=== PATIENT | female | born 1940 | race Caucasian/White ===

== ENCOUNTER 2020-10-30 18:26 | Emergency (ER) | payer OTHER ==
[~2020-10-30] VITALS: Ht 157.5 cm; Wt 52.2 kg
--- NOTE | 2020-10-30 18:28 | NUR ---
Placed in room 05 . 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 To gown for exam. Side rails up.
[2020-10-30 18:38] VITALS: BP_SYST 137
--- NOTE | 2020-10-30 19:15 | NUR ---
Received endorsement from previous shift, awake, alert, demented, breathing spontaneously at room air, not in distress noted. skin warm to touch and normal in color. came in ER due to fall with left hip pain. Safety measures in place and continue monitor
[2020-10-30] MEDS ORDERED: MORPHINE 2 MG/ML INJ. SYRINGE IVP ONE (19:30)
--- NOTE | 2020-10-30 20:10 | NUR ---
IV cannula g20 inserted at right forearm, asymptomatic and patent
[2020-10-30] MEDS ORDERED: MORPHINE 2 MG/ML INJ. SYRINGE ONE (20:13)
[2020-10-30 20:15] LABS: BASOPHILS # (AUTO) 0.1 K/uL (0.0-0.2); BASOPHILS % (AUTO) 0.6 % (0.0-2.0); EOSINOPHILS # (AUTO) 0.2 K/uL (0.0-0.4); EOSINOPHILS % (AUTO) 1.7 % (0.0-4.0); HEMATOCRIT 38.3 % (36-48); HEMOGLOBIN 12.5 g/dL (12.0-16.0); LYMPHOCYTES # (AUTO) 1.2 K/uL (1.0-5.5); LYMPHOCYTES % (AUTO) 8.6 % (20.5-51.5); MEAN CORPUSCULAR HEMOGLOBIN 29 pg (27-31); MEAN CORPUSCULAR HGB CONC 33 % (32-36); MEAN CORPUSCULAR VOLUME 89 fL (79.0-98.0); MONOCYTES % (AUTO) 7.2 % (1.7-9.3); NEUTROPHILS % (AUTO) 81.9 % (40.0-70.0); PLATELET COUNT (AUTO) 220 K/uL (130-430); RED BLOOD CELL COUNT(AUTO) 4.31 MIL/uL (4.2-6.2); RED CELL DISTRIBUTION WIDTH 14.2 % (9.0-15.0); WHITE BLOOD COUNT (AUTO) 13.5 K/uL (4.8-10.8)
--- NOTE | 2020-10-30 20:19 | NUR ---
Complained of left hip pain 5/10, facial grimaced noted. morphine 2mg IV once as ordered given
[2020-10-30 20:31] LABS: ANION GAP 6 (5-15); CALCIUM 10.9 mg/dL (8.4-11.0); CHLORIDE 106 mmol/L (98-107); GLUCOSE 85 mg/dL (70-99); POTASSIUM 3.8 mmol/L (3.5-5.1); SODIUM SERUM 139 mmol/L (136-145); UREA NITROGEN, BLOOD 26 mg/dL (8-21)
[2020-10-30 20:36] LABS: ALANINE AMINOTRANSFERASE 38 U/L (12-78); ASPARTATE AMINOTRANSFERASE 22 U/L (10-37); TOTAL BILIRUBIN 0.2 mg/dL (0.0-1.0)
[2020-10-30 20:47] LABS: PROTHROMBIN TIME 9.9 SECS (9.5-12.5)
--- NOTE | 2020-10-30 21:00 | NUR ---
In and out straight catheter done, 50ml clear yellow urine noted, sample sent to lab
[2020-10-30 21:22] LABS: BILIRUBIN,URINE NEGATIVE (NEGATIVE); BLOOD, URINE NEGATIVE (NEGATIVE); CLARITY/URINE CLEAR (CLEAR); COLOR,URINE YELLOW (YELLOW); GLUCOSE,URINE NEGATIVE (NEGATIVE); KETONES,URINE NEGATIVE (NEGATIVE); LEUKOCYTE ESTERASE ,URINE NEGATIVE (NEGATIVE); NITRITE, URINE POSITIVE (NEGATIVE); PROTEIN URINE NEGATIVE (NEGATIVE); UROBILINOGEN,URINE 0.2 (0.2-1.0)
--- NOTE | 2020-10-30 21:25 | NUR ---
called an[facility]us[facility] at and spoke to Lucero, caregiver. informed patient will be sent bls back to residence. bls transport will be arranged.
[2020-10-30 21:37] LABS: RBC,URINE 0-3 /HPF (0-3)
[2020-10-30 21:38] LABS: BACTERIA,URINE MANY /HPF (None Seen); MUCUS,URINE None Seen /LPF (None Seen)
--- NOTE | 2020-10-30 22:01 | NUR ---
Discharged in stable condition per lindsey accompanied by [facility] transport personnel back to [facility], discharge instruction given Addendum: 10/30/20 at 2208 by JAVIER Patient given written and verbal discharge instructions and verbalizes understanding. ER MD discussed with patient the results and treatment provided. Patient in stable condition. ID arm band removed. IV catheter removed intact and dressing applied, no active bleeding. Rx of given. Patient educated on pain management and to follow up with PMD. Pain Scale . Opportunity for questions provided and answered. Medication side effect fact sheet provided.
[2020-10-30 22:03] VITALS: BP_SYST 148
--- NOTE | 2020-10-31 08:20 | NUR ---
[facility] contacted and let them know pt will need to come back in to be re-evaluated. Pt to be brought in
--- NOTE | 2020-10-31 10:56 | NUR ---
Spoke with Caregiver answered questions regarding hip and advised to bring pt in to be evaluated per previous call. Caregiver stated she understood
== END 2020-10-30 22:03 | disposition home or self-care (01) ==
LOC: SED 18:26
DX: M25.552 Pain in left hip (principal); I10 Essential (primary) hypertension; Z79.899 Other long term (current) drug therapy; W05.0XXA Fall from non-moving wheelchair, initial encounter; Y93.89 Activity, other specified; Y92.89 Other specified places as the place of occurrence of the external cause; Y99.8 Other external cause status
CPT/HCPCS: 36415; 71045; 72170; 73502; 80053; 81000; 84484; 85025; 85610; 85730; 87086; 93005; 96374; 99285; J2270

== ENCOUNTER 2020-10-31 15:26 | Inpatient (IN) | payer OTHER, SELFPAY ==
[~2020-10-31] VITALS: Ht 172.7 cm; Wt 55.3 kg
[2020-10-31 15:26] VITALS: BP_SYST 133
[2020-10-31 16:21] LABS: BASOPHILS # (AUTO) 0.1 K/uL (0.0-0.2); BASOPHILS % (AUTO) 0.8 % (0.0-2.0); EOSINOPHILS # (AUTO) 0.3 K/uL (0.0-0.4); EOSINOPHILS % (AUTO) 2.8 % (0.0-4.0); HEMATOCRIT 34.6 % (36-48); HEMOGLOBIN 11.7 g/dL (12.0-16.0); LYMPHOCYTES # (AUTO) 1.3 K/uL (1.0-5.5); LYMPHOCYTES % (AUTO) 13.1 % (20.5-51.5); MEAN CORPUSCULAR HEMOGLOBIN 30 pg (27-31); MEAN CORPUSCULAR HGB CONC 34 % (32-36); MEAN CORPUSCULAR VOLUME 88 fL (79.0-98.0); MONOCYTES # (AUTO) 0.7 K/uL (0.0-1.0); MONOCYTES % (AUTO) 7.6 % (1.7-9.3); NEUTROPHILS # (AUTO) 7.4 K/uL (1.8-7.7); NEUTROPHILS % (AUTO) 75.7 % (40.0-70.0); PLATELET COUNT (AUTO) 200 K/uL (130-430); RED BLOOD CELL COUNT(AUTO) 3.92 MIL/uL (4.2-6.2); RED CELL DISTRIBUTION WIDTH 13.8 % (9.0-15.0); WHITE BLOOD COUNT (AUTO) 9.8 K/uL (4.8-10.8)
[2020-10-31 16:44] LABS: ANION GAP 9 (5-15); CHLORIDE 107 mmol/L (98-107); CREATININE 1.09 mg/dL (0.55-1.30); GLUCOSE 94 mg/dL (70-99); POTASSIUM 3.9 mmol/L (3.5-5.1); SODIUM SERUM 139 mmol/L (136-145); UREA NITROGEN, BLOOD 23 mg/dL (8-21)
[2020-10-31 16:48] LABS: BILIRUBIN,URINE NEGATIVE (NEGATIVE); BLOOD, URINE NEGATIVE (NEGATIVE); COLOR,URINE YELLOW (YELLOW); GLUCOSE,URINE NEGATIVE (NEGATIVE); KETONES,URINE NEGATIVE (NEGATIVE); LEUKOCYTE ESTERASE ,URINE NEGATIVE (NEGATIVE); NITRITE, URINE POSITIVE (NEGATIVE); PROTEIN URINE NEGATIVE (NEGATIVE); UROBILINOGEN,URINE 0.2 (0.2-1.0)
[2020-10-31 16:50] LABS: ALANINE AMINOTRANSFERASE 91 U/L (12-78); ALBUMIN 2.6 g/dL (3.4-4.8); ASPARTATE AMINOTRANSFERASE 93 U/L (10-37); TOTAL BILIRUBIN 0.4 mg/dL (0.0-1.0)
[2020-10-31 17:17] LABS: CLARITY/URINE HAZY (CLEAR)
[2020-10-31 17:22] LABS: BACTERIA,URINE MANY /HPF (None Seen); RBC,URINE 0-3 /HPF (0-3); WBC,URINE 0-3 /HPF (0-3)
[2020-10-31 17:23] LABS: MUCUS,URINE None Seen /LPF (None Seen)
[2020-10-31] MEDS ORDERED: cefTRIAXone 1 GM in D5W 50 ML IV SCH (17:45)
[2020-10-31] MEDS ORDERED: ONDANSETRON HCL 4 MG/2 ML VIAL IVP PRN (18:30)
[2020-10-31] MEDS ORDERED: MORPHINE 4 MG/ML INJ. SYRINGE IVP PRN (18:30)
[2020-10-31] MEDS ORDERED: MORPHINE 2 MG/ML INJ. SYRINGE IVP PRN (18:30)
[2020-10-31] MEDS ORDERED: METOCLOPRAMIDE HCL 10 MG/2 ML VIAL IVP PRN (18:30)
[2020-10-31] MEDS ORDERED: ACETAMINOPHEN 325 MG TABLET PO PRN (18:30)
[2020-10-31] MEDS ORDERED: cefTRIAXone 1 GM IVPB PREMIX 50 ML IV ONE (18:31)
[2020-10-31 19:42] VITALS: BP_SYST 140
[2020-10-31 20:00] VITALS: BP_SYST 127
[2020-11-01] VITALS: BP_SYST 156
[2020-11-01] MEDS ORDERED: ZOLP5TAB2 PO (04:36)
[2020-11-01] MEDS ORDERED: LOSA50TA3 PO (04:36)
[2020-11-01] MEDS ORDERED: QUET25TA34 PO (04:36)
[2020-11-01] MEDS ORDERED: QUET50TA22 PO (04:36)
[2020-11-01] MEDS ORDERED: MIRT30TA7 PO (04:36)
[2020-11-01 08:00] VITALS: BP_SYST 130
[2020-11-01] MEDS ORDERED: QUEtiapine FUMARATE 25 MG TABLET PO ONE (09:30)
[2020-11-01] MEDS ORDERED: LOSARTAN POTASSIUM 50 MG TABLET (COZAAR) PO ONE (09:30)
[2020-11-01] MEDS ORDERED: MIRTAZAPINE 15 MG TABLET PO ONE (09:30)
[2020-11-01 12:09] LABS: PROTHROMBIN TIME 9.9 SECS (9.5-12.5)
[2020-11-01 12:41] VITALS: BP_SYST 119
[2020-11-01 16:52] VITALS: BP_SYST 118
[2020-11-01 19:59] VITALS: BP_SYST 141
[2020-11-01 20:00] VITALS: BP_SYST 107
[2020-11-01] MEDS ORDERED: ENOXAPARIN SODIUM 40 MG/0.4 ML SYRINGE SUBCUT ONE (21:00)
[2020-11-02] MEDS: QUEtiapine FUMARATE 25 MG TABLET PO SCH ×3 (00:07→09:00)
[2020-11-02 00:27] VITALS: BP_SYST 110
[2020-11-02 04:00] VITALS: BP_SYST 118
[2020-11-02] MEDS ORDERED: POLYMYXIN 500,000/BACIT.10,000 UNITS in NS IRR 1 L IR ONE (07:25)
[2020-11-02] MEDS ORDERED: HYDROmorphone 1 MG INJ. 1 MG/ML AMPUL IVP PRN ×2 (08:45)
[2020-11-02] MEDS ORDERED: NALOXONE HCL 0.4 MG/ML AMP (NARCAN) IVP PRN ×2 (08:45)
[2020-11-02] MEDS ORDERED: ONDANSETRON HCL 4 MG/2 ML VIAL IVP PRN (08:45)
[2020-11-02] MEDS: MIRTAZAPINE 15 MG TABLET PO SCH (09:00)
[2020-11-02] MEDS: LOSARTAN POTASSIUM 50 MG TABLET (COZAAR) PO SCH (09:00)
[2020-11-02 09:45] VITALS: BP_SYST 110
[2020-11-02 12:00] VITALS: BP_SYST 99
[2020-11-02 16:00] VITALS: BP_SYST 100
[2020-11-03] VITALS (7 sets, daily range): BP systolic 93–136
[2020-11-03] MEDS: QUEtiapine FUMARATE 25 MG TABLET PO SCH ×5 (00:32→20:07)
[2020-11-03] MEDS: ENOXAPARIN SODIUM 40 MG/0.4 ML SYRINGE SUBCUT SCH ×2 (00:38→20:09)
[2020-11-03] MEDS: LOSARTAN POTASSIUM 50 MG TABLET (COZAAR) PO SCH (09:00)
[2020-11-03] MEDS: MIRTAZAPINE 15 MG TABLET PO SCH (09:45)
[2020-11-03] MEDS ORDERED: cefTRIAXone 1 GM IVPB PREMIX 50 ML IV SCH (10:00)
== END 2020-11-03 20:45 | DRG 481 ==
LOC: SED 15:26 → SMU 17:15
PROVIDERS: ADMIT Internal Medicine Hospice and Palliative Medicine; ATTEND Internal Medicine Hospice and Palliative Medicine
PROC: 0QH734Z Insertion of Internal Fixation Device into Left Upper Femur, Percutaneous Approach (ICD-10-PCS; principal; 2020-11-02 07:21)
DX: S72.002A Fracture of unspecified part of neck of left femur, initial encounter for closed fracture (principal); N39.0 Urinary tract infection, site not specified; G30.9 Alzheimer's disease, unspecified; Z20.822 Contact with and (suspected) exposure to COVID-19; F02.80 Dementia in other diseases classified elsewhere, unspecified severity, without behavioral disturbance, psychotic disturbance, mood disturbance, and anxiety; I10 Essential (primary) hypertension; W19.XXXA Unspecified fall, initial encounter; Y93.89 Activity, other specified; Y92.89 Other specified places as the place of occurrence of the external cause; Y99.8 Other external cause status
CPT/HCPCS: 36415; 72192-TC; 76000; 76376; 80053; 81000-TC; 83605; 85025; 85610-TC; 87040-TC; 87081; 87086; 93005; 96374; J0696; J1650; J7060